=== PATIENT | female | born 1950 | race Caucasian/White ===

== ENCOUNTER → 2017-07-18 | Outpatient (CLI) | payer BC ==
[2017-07-18 15:32] LABS: INR 1.81; PROTIME 21.4 Sec (11.9-14.9); PT RATIO 1.7
== END | disposition home or self-care (01) ==
LOC: LAB 11:59
DX: I82.91 Chronic embolism and thrombosis of unspecified vein (principal)
CPT/HCPCS: 85610

== ENCOUNTER → 2017-07-28 | Outpatient (CLI) | payer BC ==
[2017-07-28 12:33] LABS: INR 2.27; PROTIME 25.6 Sec (11.9-14.9)
== END | disposition home or self-care (01) ==
LOC: LAB 11:35
DX: I82.91 Chronic embolism and thrombosis of unspecified vein (principal)
CPT/HCPCS: 85610

== ENCOUNTER → 2017-08-16 | Outpatient (CLI) | payer BC ==
[2017-08-16 15:32] LABS: ADD MAN DIFF? NO
[2017-08-16 15:41] LABS: WHITE BLOOD COUNT 6.6 10^3/ul (4.8-10.8)
[2017-08-16 15:41] LABS: BASOPHILS % 0.5 % (0.0-2.0); EOSINOPHILS # 0.1 10^3/ul (0.0-0.5); EOSINOPHILS % 0.8 % (0.0-7.0); HEMATOCRIT 45.4 % (37.0-47.0); HEMOGLOBIN 15.1 g/dl (12.0-16.0); LYMPHOCYTES # 1.6 10^3/ul (0.8-2.9); LYMPHOCYTES % 23.9 % (15.0-51.0); MEAN CORPUSCULAR HEMOGLOBIN 29.7 pg (29.0-33.0); MEAN CORPUSCULAR HGB CONC 33.3 g/dl (32.0-37.0); MEAN CORPUSCULAR VOLUME 89.2 fl (82.0-101.0); MEAN PLATELET VOLUME 11.4 fl (7.4-10.4); MONOCYTE # 0.8 10^3/ul (0.3-0.9); MONOCYTES % 11.3 % (0.0-11.0); NEUTROPHIL # 4.2 10^3/ul (1.6-7.5); NEUTROPHILS % 63.3 % (39.0-77.0); PLATELET COUNT 176 10^3/UL (140-415); RED BLOOD COUNT 5.09 10^6/ul (4.20-5.40); RED CELL DISTRIBUTION WIDTH 14.6 % (11.5-14.5)
[2017-08-16 15:50] LABS: ADD UMIC YES; UR ASCORBIC ACID NEGATIVE (NEGATIVE); UR BILIRUBIN (Dip) NEGATIVE (NEGATIVE); UR BLOOD (Dip) NEGATIVE (NEGATIVE); UR CLARITY CLEAR (CLEAR); UR COLOR YELLOW (YELLOW); UR GLUCOSE (Dip) NEGATIVE (NEGATIVE); UR KETONES (Dip) NEGATIVE (NEGATIVE); UR LEUKOCYTE ESTERASE (Dip) NEGATIVE Leu/ul (NEGATIVE); UR NITRITE (Dip) NEGATIVE (NEGATIVE); UR RBC 0 /HPF (0-5); UR SPECIFIC GRAVITY (Dip) 1.015 (1.003-1.030); UR TOTAL PROTEIN (Dip) 1+ mg/dl (NEGATIVE); UR UROBILINOGEN (Dip) NEGATIVE (NEGATIVE); UR WBC 0 /HPF (0-5)
[2017-08-16 15:55] LABS: INR 0.94; PROTIME 12.7 Sec (11.9-14.9)
[2017-08-16 15:56] LABS: PARTIAL THROMBOPLASTIN TIME 27.5 Sec (25.0-35.0)
[2017-08-16 16:01] LABS: ALANINE AMINOTRANSFERASE 33 IU/L (13-69); ALBUMIN 4.9 g/dl (3.3-4.9); ALKALINE PHOSPHATASE 90 IU/L (42-121); ANION GAP 15 (8-16); ASPARTATE AMINO TRANSFERASE 50 IU/L (15-46); BILIRUBIN,INDIRECT 0.5 mg/dl (0-1.1); BILIRUBIN,TOTAL 0.5 mg/dl (0.2-1.3); BLOOD UREA NITROGEN 21 mg/dl (7-20); CALCIUM 10.2 mg/dl (8.4-10.2); CARBON DIOXIDE 28 mmol/L (21-31); CHLORIDE 104 mmol/L (97-110); CREATININE 0.92 mg/dl (0.44-1.00); GLUCOSE 98 mg/dl (70-220); POTASSIUM 4.6 mmol/L (3.5-5.1); SODIUM 142 mmol/L (135-144); TOTAL PROTEIN 8.4 g/dl (6.1-8.1)
== END | disposition home or self-care (01) ==
LOC: LAB 08:13
DX: R06.02 Shortness of breath (principal)
CPT/HCPCS: 71045; 80053; 81001; 85025; 85610; 85730; 93005

== ENCOUNTER → 2017-09-06 | Outpatient (CLI) | payer BC ==
[2017-09-06 16:27] LABS: INR 2.27; PROTIME 25.6 Sec (11.9-14.9)
== END | disposition home or self-care (01) ==
LOC: LAB 13:44
DX: I82.91 Chronic embolism and thrombosis of unspecified vein (principal)
CPT/HCPCS: 85610

== ENCOUNTER → 2017-10-26 | Outpatient (CLI) | payer BC ==
[2017-10-26 10:49] LABS: INR 2.62; PROTIME 28.7 Sec (11.9-14.9); PT RATIO 2.2
== END | disposition home or self-care (01) ==
LOC: LAB 09:11
DX: I82.91 Chronic embolism and thrombosis of unspecified vein (principal)
CPT/HCPCS: 85610

== ENCOUNTER → 2017-12-13 | Outpatient (CLI) | payer BC ==
[2017-12-13 11:33] LABS: INR 2.72; PROTIME 29.6 Sec (11.9-14.9); PT RATIO 2.3
== END | disposition home or self-care (01) ==
LOC: LAB 08:47
DX: I82.91 Chronic embolism and thrombosis of unspecified vein (principal)
CPT/HCPCS: 85610

== ENCOUNTER → 2018-02-09 | Outpatient (CLI) | payer BC ==
[2018-02-09 12:00] LABS: ADD MAN DIFF? NO
[2018-02-09 12:12] LABS: WHITE BLOOD COUNT 6.5 10^3/ul (4.8-10.8)
[2018-02-09 12:12] LABS: BASOPHILS % 0.6 % (0.0-2.0); EOSINOPHILS # 0.2 10^3/ul (0.0-0.5); EOSINOPHILS % 2.6 % (0.0-7.0); HEMATOCRIT 42.2 % (37.0-47.0); HEMOGLOBIN 13.9 g/dl (12.0-16.0); LYMPHOCYTES # 1.8 10^3/ul (0.8-2.9); LYMPHOCYTES % 27.9 % (15.0-51.0); MEAN CORPUSCULAR HGB CONC 32.9 g/dl (32.0-37.0); MEAN CORPUSCULAR VOLUME 91.1 fl (82.0-101.0); MEAN PLATELET VOLUME 12.5 fl (7.4-10.4); MONOCYTE # 0.7 10^3/ul (0.3-0.9); MONOCYTES % 10.5 % (0.0-11.0); NEUTROPHIL # 3.8 10^3/ul (1.6-7.5); NEUTROPHILS % 58.2 % (39.0-77.0); PLATELET COUNT 193 10^3/UL (140-415); RED BLOOD COUNT 4.63 10^6/ul (4.20-5.40); RED CELL DISTRIBUTION WIDTH 15.3 % (11.5-14.5)
[2018-02-09 12:24] LABS: PROTIME 24.1 Sec (11.9-14.9); PT RATIO 1.9
[2018-02-09 12:25] LABS: PARTIAL THROMBOPLASTIN TIME 36.3 Sec (25.0-35.0)
[2018-02-09 12:53] LABS: ALANINE AMINOTRANSFERASE 26 IU/L (13-69); ALBUMIN 4.2 g/dl (3.3-4.9); ALBUMIN/GLOBULIN RATIO 1.31; ALKALINE PHOSPHATASE 73 IU/L (42-121); ANION GAP 12 (8-16); ASPARTATE AMINO TRANSFERASE 43 IU/L (15-46); BILIRUBIN,INDIRECT 0.5 mg/dl (0-1.1); BILIRUBIN,TOTAL 0.5 mg/dl (0.2-1.3); BLOOD UREA NITROGEN 22 mg/dl (7-20); CALCIUM 9.8 mg/dl (8.4-10.2); CARBON DIOXIDE 28 mmol/L (21-31); CHLORIDE 105 mmol/L (97-110); CHOLESTEROL 196 mg/dl (100-200); GLUCOSE 105 mg/dl (70-220); HDL CHOLESTEROL 95 mg/dl (35-98); LDL CHOLESTEROL,CALCULATED 68 mg/dl; POTASSIUM 3.9 mmol/L (3.5-5.1); SODIUM 141 mmol/L (135-144); TOTAL PROTEIN 7.4 g/dl (6.1-8.1); TRIGLYCERIDES 163 mg/dl (0-149)
== END | disposition home or self-care (01) ==
LOC: LAB 10:15
DX: E78.5 Hyperlipidemia, unspecified (principal); I10 Essential (primary) hypertension; I65.29 Occlusion and stenosis of unspecified carotid artery
CPT/HCPCS: 80053; 80061; 85025; 85610; 85730

== ENCOUNTER → 2018-02-14 | Outpatient (CLI) | payer BC ==
[~2018-02-14] MED LIST: IOHEXOL 100 ML; SOD CHLORIDE 0.9% 100 ML
== END | disposition home or self-care (01) ==
LOC: LAB 10:04
DX: I72.3 Aneurysm of iliac artery (principal)
CPT/HCPCS: 75635

== ENCOUNTER → 2018-04-19 | Outpatient (CLI) | payer BC ==
[2018-04-19 15:29] LABS: INR 3.03; PROTIME 32.3 Sec (11.9-14.9); PT RATIO 2.5
[2018-04-19 15:30] LABS: PARTIAL THROMBOPLASTIN TIME 45.3 Sec (23.0-35.0)
== END | disposition home or self-care (01) ==
LOC: LAB 14:08
DX: I82.91 Chronic embolism and thrombosis of unspecified vein (principal)
CPT/HCPCS: 85610; 85730

== ENCOUNTER → 2018-04-27 | Outpatient (CLI) | payer BC ==
[2018-04-27 13:21] LABS: INR 3.26; PROTIME 34.2 Sec (11.9-14.9); PT RATIO 2.7
== END | disposition home or self-care (01) ==
LOC: LAB 09:25
DX: I82.91 Chronic embolism and thrombosis of unspecified vein (principal)
CPT/HCPCS: 85610

== ENCOUNTER → 2018-05-09 | Outpatient (CLI) | payer BC ==
[2018-05-09 11:05] LABS: INR 2.64; PROTIME 28.9 Sec (11.9-14.9); PT RATIO 2.3
== END | disposition home or self-care (01) ==
LOC: LAB 08:00
DX: I82.91 Chronic embolism and thrombosis of unspecified vein (principal)
CPT/HCPCS: 85610

== ENCOUNTER → 2018-06-28 | Outpatient (CLI) | payer BC ==
[2018-06-28 14:08] LABS: INR 2.05; PROTIME 23.6 Sec (11.9-14.9); PT RATIO 1.8
== END | disposition home or self-care (01) ==
LOC: LAB 08:00
DX: I82.91 Chronic embolism and thrombosis of unspecified vein (principal)
CPT/HCPCS: 85610

== ENCOUNTER → 2018-08-01 | Outpatient (CLI) | payer BC | END | disposition home or self-care (01) | LOC: LAB 11:11 | DX: I82.819 Embolism and thrombosis of superficial veins of unspecified lower extremity (principal) ==

== ENCOUNTER → 2018-08-01 | Outpatient (CLI) | payer BC ==
[2018-08-01 12:09] LABS: ADD MAN DIFF? NO
[2018-08-01 12:12] LABS: BASOPHILS % 0.6 % (0.0-2.0); EOSINOPHILS # 0.1 10^3/ul (0.0-0.5); EOSINOPHILS % 1.6 % (0.0-7.0); HEMATOCRIT 40.9 % (37.0-47.0); HEMOGLOBIN 13.7 g/dl (12.0-16.0); LYMPHOCYTES # 1.8 10^3/ul (0.8-2.9); LYMPHOCYTES % 28.4 % (15.0-51.0); MEAN CORPUSCULAR HEMOGLOBIN 29.7 pg (29.0-33.0); MEAN CORPUSCULAR HGB CONC 33.5 g/dl (32.0-37.0); MEAN CORPUSCULAR VOLUME 88.5 fl (82.0-101.0); MEAN PLATELET VOLUME 11.6 fl (7.4-10.4); MONOCYTE # 0.6 10^3/ul (0.3-0.9); NEUTROPHIL # 3.7 10^3/ul (1.6-7.5); NEUTROPHILS % 59.1 % (39.0-77.0); PLATELET COUNT 205 10^3/UL (140-415); RED BLOOD COUNT 4.62 10^6/ul (4.20-5.40); RED CELL DISTRIBUTION WIDTH 14.8 % (11.5-14.5)
[2018-08-01 12:12] LABS: WHITE BLOOD COUNT 6.3 10^3/ul (4.8-10.8)
[2018-08-01 12:32] LABS: ALANINE AMINOTRANSFERASE 20 IU/L (13-69); ALBUMIN 4.2 g/dl (3.3-4.9); ALBUMIN/GLOBULIN RATIO 1.27; ALKALINE PHOSPHATASE 65 IU/L (42-121); ANION GAP 13 (5-13); ASPARTATE AMINO TRANSFERASE 39 IU/L (15-46); BILIRUBIN,INDIRECT 0.2 mg/dl (0-1.1); BILIRUBIN,TOTAL 0.2 mg/dl (0.2-1.3); BLOOD UREA NITROGEN 20 mg/dl (7-20); CALCIUM 9.8 mg/dl (8.4-10.2); CARBON DIOXIDE 28 mmol/L (21-31); CHLORIDE 100 mmol/L (97-110); CHOL/HDL RATIO 1.9 RATIO; CHOLESTEROL 178 mg/dl (100-200); CREATININE 0.78 mg/dl (0.44-1.00); Estimated GFR > 60 mL/min (>60); GLUCOSE 112 mg/dl (70-220); HDL CHOLESTEROL 92 mg/dl (35-98); LDL CHOLESTEROL,CALCULATED 64 mg/dl; SODIUM 141 mmol/L (135-144); TOTAL PROTEIN 7.5 g/dl (6.1-8.1); TRIGLYCERIDES 112 mg/dl (0-149)
[2018-08-01 12:45] LABS: INR 2.18; PROTIME 24.3 Sec (11.9-14.9); PT RATIO 1.9
== END | disposition home or self-care (01) ==
LOC: LAB 11:35
DX: E78.5 Hyperlipidemia, unspecified (principal)
CPT/HCPCS: 80053; 80061; 85025; 85610

== ENCOUNTER → 2018-09-14 | Outpatient (CLI) | payer BC ==
[2018-09-14 10:09] LABS: INR 1.89; PARTIAL THROMBOPLASTIN TIME 36.6 Sec (23.0-35.0); PROTIME 21.8 Sec (11.9-14.9); PT RATIO 1.7
== END | disposition home or self-care (01) ==
LOC: LAB 09:13
DX: I82.91 Chronic embolism and thrombosis of unspecified vein (principal)
CPT/HCPCS: 85610; 85730

== ENCOUNTER → 2018-11-09 | Outpatient (CLI) | payer BC ==
[2018-11-09 12:21] LABS: INR 3.09; PROTIME 31.9 Sec (11.9-14.9); PT RATIO 2.5
== END | disposition home or self-care (01) ==
LOC: LAB 09:48
DX: I82.91 Chronic embolism and thrombosis of unspecified vein (principal)
CPT/HCPCS: 85610

== ENCOUNTER → 2018-12-28 | Outpatient (CLI) | payer BC ==
[2018-12-28 12:04] LABS: INR 2.89; PROTIME 30.3 Sec (11.9-14.9); PT RATIO 2.4
[2018-12-28 16:20] LABS: T4 (THYROXINE) 6.8 ug/dl (5.5-11.0)
[2018-12-28 16:34] LABS: THYROID STIMULATING HORMONE 0.954 MIU/L (0.465-4.680)
== END | disposition home or self-care (01) ==
LOC: LAB 10:25
DX: E78.5 Hyperlipidemia, unspecified (principal); Z79.01 Long term (current) use of anticoagulants
CPT/HCPCS: 84436; 84443; 85610

== ENCOUNTER → 2019-02-21 | Outpatient (CLI) | payer BC ==
[2019-02-21 11:56] LABS: HAAIG REFLEX REFLEX FILED
[2019-02-21 12:57] LABS: HEPATITIS B SURFACE ANTIGEN NEGATIVE (NEGATIVE)
[2019-02-21 13:14] LABS: HEPATITIS B CORE ANTIBODY NEGATIVE (NEGATIVE); HEPATITIS C VIRAL ANTIBODY NEGATIVE (NEGATIVE); HIV 1&2 ANTIBODY NEGATIVE (NEGATIVE)
[2019-02-24 13:01] LABS: NIL 0.13 IU/mL; QUANTIFERON(R)-TB GOLD NEGATIVE (NEGATIVE); TB-NIL 0.02 IU/mL; TB2-NIL 0.02 IU/mL
== END | disposition home or self-care (01) ==
LOC: LAB 10:26
DX: L60.9 Nail disorder, unspecified (principal)
CPT/HCPCS: 86480; 86703; 86704; 86709; 86803; 87340